=== PATIENT | female | born 1970 | race Caucasian/White ===

== ENCOUNTER 2022-01-13 08:06 | Emergency (ER) | payer BC ==
[2022-01-13] MEDS ORDERED: methylPREDNISolone Sodium Succinate 125 MG/2 ML SDV IVPUSH ONE (08:32)
[2022-01-13] MEDS ORDERED: diphenhydrAMINE 50 MG/ML SDV IVPUSH ONE (08:32)
[2022-01-13] MEDS ORDERED: Sodium Chloride 0.9% 10 ML Syringe FLUSH PRN (08:32)
[2022-01-13] MEDS ORDERED: Famotidine 20 MG/2 ML SDV IVPUSH ONE (08:33)
== END 2022-01-13 09:37 | disposition home or self-care (01) ==
LOC: DL.ED 08:06
DX: L50.0 Allergic urticaria (principal)
CPT/HCPCS: 96374; 96375; 99282; 99283; J1200; J2930; J3490